=== PATIENT | female | born 1975 | race Caucasian/White ===

== ENCOUNTER 2019-07-02 03:19 | Emergency (ER) | payer OTHER, MEDICAID ==
[~2019-07-02] VITALS: Ht 165.1 cm; Wt 89.8 kg
[~2019-07-02 03:19] MED LIST: LEVO25TA49; LORA-655
[2019-07-02 03:33] VITALS: BP 139/82
[2019-07-02 04:21] LABS: Urine Bacteria FEW /hpf (None Seen); Urine Blood 1+ /uL (Negative); Urine Specific Gravity 1.012 (1.001-1.035); Urine WBC 1 /hpf (0 - 5)
== END 2019-07-02 04:48 | disposition left against medical advice (07) ==
LOC: ER 03:25
DX: R19.7 Diarrhea, unspecified (principal); Z53.21 Procedure and treatment not carried out due to patient leaving prior to being seen by health care provider
CPT/HCPCS: 81001